=== PATIENT | female | born 1970 | race Caucasian/White ===

== ENCOUNTER 2017-12-09 23:31 | Emergency (ER) | payer SELFPAY ==
[2017-12-09 23:35] VITALS: BP 118/65; PULSE 86; RESP 14; TEMP 98.6; O2SAT 98
[2017-12-09] MEDS ORDERED: SODIUM CHLOR 0.9% 1000 ML INJ 1,000 ML IV ONE (23:43)
[2017-12-09] MEDS ORDERED: SODIUM CHLORIDE 0.9% FLUSH 10 ML FLUSH IVF PRN (23:45)
[2017-12-10 00:10] LABS: AUTOMATED NEUTROPHIL # 7.9 TH/MM3 (1.8-7.7); BASOPHIL # 0.1 TH/MM3 (0-0.2); BASOPHIL % 0.6 % (0.0-2.0); EOSINOPHIL # 0.1 TH/MM3 (0-0.4); EOSINOPHIL % 0.8 % (0.0-4.0); HEMATOCRIT 35.4 % (35.0-46.0); HEMOGLOBIN 11.4 GM/DL (11.6-15.3); LYMPH % 33.1 % (9.0-44.0); LYMPHOCYTE # 4.3 TH/MM3 (1.0-4.8); MEAN CELL VOLUME 81.6 FL (80.0-100.0); MEAN CORPUSCULAR HEMOGLOBIN 26.4 PG (27.0-34.0); MEAN CORPUSCULAR HGB CONC 32.3 % (32.0-36.0); MEAN PLATELET VOLUME 8.2 FL (7.0-11.0); MONO % 5.4 % (0.0-8.0); MONOCYTE # 0.7 TH/MM3 (0-0.9); NEUT % 60.1 % (16.0-70.0); PLATELET COUNT 271 TH/MM3 (150-450); RED BLOOD COUNT 4.33 MIL/MM3 (4.00-5.30); RED CELL DISTRIBUTION WIDTH 16.6 % (11.6-17.2); WHITE BLOOD COUNT 13.1 TH/MM3 (4.0-11.0)
[2017-12-10 00:15] LABS: BACTERIA, URINE FEW /hpf; BILIRUBIN, URINE NEG (NEG); BLOOD, URINE NEG (NEG); GLUCOSE,URINE NEG (NEG); KETONE, URINE NEG (NEG); MUCUS URINE FEW /lpf (OCC); NITRITE,URINE NEG (NEG); PH, URINE 7.5 (5.0-8.5); SQUAMOUS EPITHELIAL CELL URINE 3 /hpf (0-5); URINE COLOR LIGHT-YELLOW (YELLW/STRAW); URINE LEUKOCYTE ESTERASE NEG (NEG)
[2017-12-10 00:19] LABS: ALBUMIN 3.7 GM/DL (3.4-5.0); ALT (GPT) 26 U/L (10-53); AST (GOT) 39 U/L (15-37); BICARBONATE 22.6 MEQ/L (21.0-32.0); BLOOD UREA NITROGEN 8 MG/DL (7-18); CALCIUM 7.7 MG/DL (8.5-10.1); CHLORIDE 109 MEQ/L (98-107); CREATININE 0.54 MG/DL (0.50-1.00); GLOMERULAR FILTRATION RATE 120 ML/MIN (>89); GLUCOSE,RANDOM 84 MG/DL (74-106); SODIUM (NA) 145 MEQ/L (136-145)
[2017-12-10 00:21] VITALS: RESP 16; O2SAT 98
[2017-12-10 00:21] LABS: ACETAMINOPHEN LESS THAN 2.0 MCG/ML (10.0-30.0); ALKALINE PHOSPHATASE 54 U/L (45-117); TOTAL BILIRUBIN ADULT 0.2 MG/DL (0.2-1.0); TOTAL PROTEIN 7.1 GM/DL (6.4-8.2)
--- NOTE | 2017-12-10 00:49 | RADRPT ---
EXAM DATE/TIME: 12/10/2017 01:29 [facility] COMPARISON: No previous studies available for comparison. INDICATIONS : Syncope, ETOH. MEDICAL HISTORY : None. SURGICAL HISTORY : None. ENCOUNTER: Initial ACUITY: 1 day PAIN SCORE: 0/10 LOCATION: Bilateral chest FINDINGS: A single view of the chest demonstrates the lungs to be symmetrically aerated without evidence of mas s, infiltrate or effusion. The cardiomediastinal contours are unremarkable. Osseous structures are intact. CONCLUSION: No acute disease. Abdulaziz Early MD on December 10, 2017 at 0:46 Board Certified Radiologist. This report was verified electronically.
[2017-12-10 03:15] VITALS: BP 109/73; PULSE 94; RESP 16; O2SAT 98
--- NOTE | 2017-12-10 05:32 | RADRPT ---
EXAM DATE/TIME: 12/10/2017 04:46 [facility] COMPARISON: No previous studies available for comparison. INDICATIONS : Altered mental status. RADIATION DOSE: 56.35 CTDIvol (mGy) MEDICAL HISTORY : Non-responsive. SURGICAL HISTORY : Non-responsive. ENCOUNTER: Initial ACUITY: 1 day PAIN SCALE: Non-responsive LOCATION: cranial TECHNIQUE: Multiple contiguous axial images were obtained of the head. Using automated exposure control and adj ustment of the mA and/or kV according to patient size, radiation dose was kept as low as reasonably a chievable to obtain optimal diagnostic quality images. DICOM format image data is available electro nically for review and comparison. FINDINGS: CEREBRUM: The ventricles are normal for age. No evidence of midline shift, mass lesion, hemorrhage or acute in farction. No extra-axial fluid collections are seen. POSTERIOR FOSSA: The cerebellum and brainstem are intact. The 4th ventricle is midline. The cerebellopontine angle i s unremarkable. EXTRACRANIAL: The visualized portion of the orbits is intact. SKULL: The calvaria is intact. No evidence of skull fracture. CONCLUSION: Normal examination. Abdulaziz Early MD on December 10, 2017 at 5:29 Board Certified Radiologist. This report was verified electronically.
--- NOTE | 2017-12-10 07:54 | PD ---
HPI Chief Complaint: Altered Mental Status Time Seen by Provider: 23:43 Travel History International Travel<30 days: No Contact w/Intl Traveler<30days: No Traveled to known affect area: No History of Present Illness HPI This is a 47-year-old female with a history of alcohol abuse, presents here via EMS after her neighbors reported that they had not seen her in several days. Upon a well being visit, they found the patient in her home with altered mental status. The patient had a heavy alcohol odor to her breath. Report was that there are multiple alcohol containers in the home. When the patient arrived, she was obtunded however arousable. She was not cooperative. [facility] Past Medical History Medical History: Unable to Obtain Tetanus Vaccination: Unknown ?: Unknown Past Surgical History Surgical History: Unable to Obtain Social History Tobacco Use: No (Unknown) Allergies-Medications (Allergen,Severity, Reaction): Coded Allergies: No Allergy Information Available (Unverified , 12/09/17) Reported Meds & Prescriptions Reported Meds & Active Scripts Active Active Prescriptions or Reported Medications Unobtainable Review of Systems ROS Limitations: Intoxication, Altered Mental Status (Unable to obtain review of systems.) Except as stated in HPI: all other systems reviewed are Neg Physical Exam Narrative GENERAL: Well-developed well-nourished female who is uncooperative and appeared intoxicated with an alcohol odor to her breath. SKIN: Focused skin assessment warm/dry. HEAD: Atraumatic. Normocephalic. EYES: Pupils equal and round. No scleral icterus. No injection or drainage. ENT: No nasal bleeding or discharge. Mucous membranes pink and moist. NECK: Trachea midline. Supple. CARDIOVASCULAR: Regular rate and rhythm. No murmur appreciated. RESPIRATORY: No accessory muscle use. Clear to auscultation. Breath sounds equal bilaterally. GASTROINTESTINAL: Abdomen soft, non-tender, nondistended. MUSCULOSKELETAL: No obvious deformities. No clubbing. No cyanosis. No edema. NEUROLOGICAL: Awake and altered and belligerent. Patient was uncooperative. She was observed moving all 4 extremities equally. The patient had slurred speech. Data Data Last Documented VS Vital Signs Date Time Temp Pulse Resp B/P (MAP) Pulse Ox O2 Delivery O2 Flow Rate FiO2 12/10/17 03:15 94 16 109/73 (85) 98 Room Air 12/09/17 23:35 98.6 Orders Orders Complete Blood Count With Diff (12/09/17 23:43) Comprehensive Metabolic Panel (12/09/17 23:43) Urinalysis - C+S If Indicated (12/09/17 23:43) Ct Brain W/O Iv Contrast(Rout) (12/09/17 23:43) Iv Access Insert/Monitor (12/09/17 23:43) Ecg Monitoring (12/09/17 23:43) Oximetry (12/09/17 23:43) Sodium Chloride 0.9% Flush (Ns Flush) (12/09/17 23:45) Sodium Chlor 0.9% 1000 Ml Inj (Ns 1000 M (12/09/17 23:43) Drug Screen, Random Urine (12/09/17 23:43) Alcohol (Ethanol) (12/09/17 23:43) Salicylates (Aspirin) (12/09/17 23:43) Tylenol (Acetaminophen) (12/09/17 23:43) Ed Urine Pregnancytest Poc (12/09/17 23:43) Restraints Non-Violent CRISTINA.Q3H (12/09/17 23:57) Chest, Single Ap (12/09/17 23:43) Labs Laboratory Tests Test 12/09/17 23:45 12/09/17 23:50 White Blood Count 13.1 TH/MM3 Red Blood Count 4.33 MIL/MM3 Hemoglobin 11.4 GM/DL Hematocrit 35.4 % Mean Corpuscular Volume 81.6 FL Mean Corpuscular Hemoglobin 26.4 PG Mean Corpuscular Hemoglobin Concent 32.3 % Red Cell Distribution Width 16.6 % Platelet Count 271 TH/MM3 Mean Platelet Volume 8.2 FL Neutrophils (%) (Auto) 60.1 % Lymphocytes (%) (Auto) 33.1 % Monocytes (%) (Auto) 5.4 % Eosinophils (%) (Auto) 0.8 % Basophils (%) (Auto) 0.6 % Neutrophils # (Auto) 7.9 TH/MM3 Lymphocytes # (Auto) 4.3 TH/MM3 Monocytes # (Auto) 0.7 TH/MM3 Eosinophils # (Auto) 0.1 TH/MM3 Basophils # (Auto) 0.1 TH/MM3 CBC Comment DIFF FINAL Differential Comment Blood Urea Nitrogen 8 MG/DL Creatinine 0.54 MG/DL Random Glucose 84 MG/DL Total Protein 7.1 GM/DL Albumin 3.7 GM/DL Calcium Level 7.7 MG/DL Alkaline Phosphatase 54 U/L Aspartate Amino Transf (AST/SGOT) 39 U/L Alanine Aminotransferase (ALT/SGPT) 26 U/L Total Bilirubin 0.2 MG/DL Sodium Level 145 MEQ/L Potassium Level 3.2 MEQ/L Chloride Level 109 MEQ/L Carbon Dioxide Level 22.6 MEQ/L Anion Gap 13 MEQ/L Estimat Glomerular Filtration Rate 120 ML/MIN Salicylates Level LESS THAN 1.7 MG/DL Acetaminophen Level LESS THAN 2.0 MCG/ML Ethyl Alcohol Level 458 MG/DL Urine Color LIGHT-YELLOW Urine Turbidity CLEAR Urine pH 7.5 Urine Specific Adrian 1.006 Urine Protein NEG mg/dL Urine Glucose (UA) NEG mg/dL Urine Ketones NEG mg/dL Urine Occult Blood NEG Urine Nitrite NEG Urine Bilirubin NEG Urine Urobilinogen LESS THAN 2.0 MG/DL Urine Leukocyte Esterase NEG Urine RBC 1 /hpf Urine WBC LESS THAN 1 /hpf Urine Squamous Epithelial Cells 3 /hpf Urine Bacteria FEW /hpf Urine Mucus FEW /lpf Microscopic Urinalysis Comment CULT NOT INDICATED Urine Opiates Screen NEG Urine Barbiturates Screen NEG Urine Amphetamines Screen NEG Urine Benzodiazepines Screen NEG Urine Cocaine Screen NEG Urine Cannabinoids Screen NEG MDM Medical Decision Making Medical Screen Exam Complete: Yes Emergency Medical Condition: Yes Differential Diagnosis Alcohol intoxication versus closed head injury versus metabolic derangement Narrative Course 47-year-old female presents via home after being found incoherent and with altered mental status. The patient has a history of alcoholism. The patient had a blood alcohol level of 458. She was i observed throughout the night. The patient is awake and appropriate at change of shift. She was able to tell me that she has been to a however is been drinking and knows that she has a problem. She reports she does have a sponsor. She was not trying to hurt herself. She just fallen off the wagon. She reports that she will call her sponsor soon as she returns home. I informed her that she would need to stop drinking alcohol was she had an extremely high level today that could have been catastrophic. She states she understands this and will make every effort to stop drinking. Diagnosis Primary Impression: Acute alcohol intoxication Additional Instructions: Stop drinking alcohol and call your AA sponsor today. Scripts Unable to Obtain Active Prescriptions or Reported Meds Disposition: DISCHARGE HOME Condition: Stable Lynch,Peter C. MD Dec 10, 2017 07:54
== END 2017-12-10 09:30 | disposition home or self-care (01) ==
LOC: NEPE 23:31
DX: F10.129 Alcohol abuse with intoxication, unspecified (principal); Y90.8 Blood alcohol level of 240 mg/100 ml or more
CPT/HCPCS: 70450; 71045; 80053; 80307; 81001; 84703; 85025; 99285; J7030